=== PATIENT | female | born 1990 | race Caucasian/White ===

== ENCOUNTER 2017-06-17 08:56 | Inpatient (IN) | payer BC, OTHER ==
[~2017-06-17] VITALS: Ht 160 cm; Wt 90.7 kg
[2017-06-17 12:00] VITALS: BP 128/94
--- NOTE | 2017-06-17 12:00 | NUR ---
INTAKE ASSESSMENT Received patient in intake. She is AOX4, stable, and ambulatory. Vital signs WNL. Patient reports NKA. Patient has seizure hx last seizure was 3 weeks ago. Patient brought home medications with her. Explained unit protocols and patient verbalized understanding. Will admit patient upon admission to third floor.
--- NOTE | 2017-06-17 12:17 | NUR ---
ADMISSION NOTE Allergy- NKA/NKFA Status-Full code Height 5'3 Weight-200 lb PCP- Dr. Mgcinnis said Vital Signs- B/P-128/94,HR-83, R-17, TEMP-98.1, SPO2-97%, Pain 4/10 SMOKE-1 Pack per day CIWA-10, COWS-13 Patient is a 27 year old female admitted to [facility] to detox center for BENZO/Opioid dependence under the care of Dr. Erwin. Urine provided by patient for urine screen and thorough body and belonging check done by CLIENT SUPPORT ANALYST. Patient appears anxious and flushed. Patient is cooperative during nursing assessment. Upon admission Patient is noted to be flat, intoxicated,but cooperative with admission. Patient reported Anxiety, Agitation,and presents with tremors. Patient denies chest pain or SOB. Lung sounds clear with no cough noted. Bowel sounds present in all 4 quadrants. BUE and BLE noted WNL with no edema present. Skin check done with no significant findings. Pt reported PMH of pre diabetic pt stated she was diagnosed 6 months ago, pt also stated she is not compliant with checking her blood sugar and taking oral Metformin. She states history as Anxiety, Depression, insomnia, history of seizure 3 weeks ago per pt "my doctor told me its from taking too much medication,back injury from lifting heavy ." Pt refused PNA vaccine. Patient brought in home medications. Patient denies SI/HI ideations. Pt AOx4. Patient reported first time in treatment. Patient reports of 9 months of sobriety from October 2014 to May 2015. Pt reported s/s of withdrawal as N/V/D, Chills, body aches, anxiety, agitation, Shakes, hot and cold flashes. Pt reported Substance abuse history as: OXYCONTIN-Pt reported taking OxyContin daily for past 6 years start taking 5 mg as her tolerance increased, she started taking 150 mg to 200mg Po and last used was 06/15/17, 130mg Po. OXYCODONE-Pt reported taking Oxycodone daily for past 6 years start taking 10 mg as her tolerance increased,She started taking 150 mg to 200mg Po and last used was 06/15/17, 100mg Po. HYDROCODONE-Pt reported taking Hydrocodone daily for past 6 years start taking 10 mg as her tolerance increased,She started taking 100 mg to 200mg Po and last used was 06/15/17, 50mg Po. XANAX-Pt reported taking Xanax daily for past 3 years start taking 1 mg as her tolerance increased,She started taking 10 mg Po and last used was 06/16/17, 1mg Po. Educated patient regarding unit policies and protocols, patient verbalized understanding. Patient oriented to unit by CLIENT SUPPORT ANALYST. Fall and seizure precautions in place. Safety measures in place, Call light within reach. Will cont to monitor.
[2017-06-17 12:24] LABS: BASOPHILS % (AUTO) 0.3 % (0.0-2.0); EOSINOPHILS % (AUTO) 0.1 % (0.0-7.0); HEMATOCRIT 46.1 % (37-47); HEMOGLOBIN 15.4 G/DL (12.0-16.0); LYMPHOCYTES # (AUTO) 2.1 K/UL (0.8-4.8); LYMPHOCYTES % (AUTO) 21.6 % (20.5-51.5); MEAN CORPUSCULAR HEMOGLOBIN 29.3 UUG (27.0-31.0); MEAN CORPUSCULAR HGB CONC 33 g/dL (32.0-37.0); MEAN CORPUSCULAR VOLUME 87.6 FL (81.0-99.0); MONOCYTES # (AUTO) 0.3 K/UL (0.1-1.30); MONOCYTES % (AUTO) 3.1 % (0.0-11.0); NEUTROPHILS # (AUTO) 7.1 K/UL (1.8-8.9); NEUTROPHILS % (AUTO) 74.9 % (38.5-71.5); PLATELET COUNT (AUTO) 384 K/UL (150-450); RED BLOOD CELL COUNT(AUTO) 5.26 MIL/UL (4.2-5.4); WHITE BLOOD COUNT (AUTO) 9.5 K/UL (4.0-11.2)
[2017-06-17 12:39] LABS: *URINE HCG, QUAL NEGATIVE (NEGATIVE)
[2017-06-17 12:42] LABS: *AMPHETAMINE, URINE NEGATIVE (NEGATIVE); *BARBITURATE, URINE NEGATIVE (NEGATIVE); *CANNABINOID, URINE NEGATIVE (NEGATIVE); *COCCAINE, URINE NEGATIVE (NEGATIVE); *OPIATE, URINE POSITIVE (NEGATIVE); *PHENCYCLIDINE SCREEN,URINE NEGATIVE (NEGATIVE)
[2017-06-17] MEDS ORDERED: BUPR100T13 PO (12:45)
[2017-06-17] MEDS ORDERED: OMEP20CA10 PO (12:45)
[2017-06-17] MEDS ORDERED: ALPR1TAB7 PO (12:45)
[2017-06-17] MEDS ORDERED: SODI650T PO (12:45)
[2017-06-17] MEDS ORDERED: OXYC30TA86 PO (12:45)
[2017-06-17] MEDS ORDERED: OXYC30TA2 PO (12:45)
[2017-06-17 12:46] LABS: ALANINE AMINOTRANSFERASE 35 U/L (14-59); ALKALINE PHOSPHATASE 125 U/L (50-136); ASPARTATE AMINOTRANSFERASE 23 U/L (15-37); BILIRUBIN,TOTAL 0.4 mg/dL (0.2-1.0); CARBON DIOXIDE 28 mmol/L (21-32); CHLORIDE 100 mmol/L (98-107); CREATININE 0.8 mg/dL (0.6-1.3); GLUCOSE 124 mg/dL (74-106); POTASSIUM 4.1 mmol/L (3.5-5.1); TOTAL PROTEIN, SERUM 8.2 g/dL (6.4-8.2); UREA NITROGEN, BLOOD 10 mg/dL (7-18)
[2017-06-17 12:51] LABS: ETHANOL < 3 MG/DL (0-0)
[2017-06-17 16:00] VITALS: BP 133/77
--- NOTE | 2017-06-17 19:03 | NUR ---
END OF SHIFT NOTE Pt admitted this afternoon for opioid/Benzo dependence. Pt started on Subutex/Valium taper tolerating well. COWS-13/CIWA-10 upon admission. Vital signs WNL. Skin intact warm and dry to touch. Last COWS-6, CIWA-7. Encourage Po fluids as tolerated. All safety measures in place, call light within reach. Pt endorsed to night nurse in stable condition.
--- NOTE | 2017-06-17 19:30 | NUR ---
START OF SHIFT NOTE Report received from AM nurse. Patient is a 27 year old female admitted to [facility] 06-17-17 for Opiate and Benzo detox. She is a full code, on a controlled carbohydrate diet, and on fall and seizure precautions. Patient with medical history of pre diabetes, anxiety, depression, insomnia and history seizure. Patient denies Si or Hi Mood apathetic and dysthymic at change of shift. Tearful when talking about missing daughter. Thoughts are linear, and patient is lucid. Vital signs stable. Last COWS 6 CIWA 7 at 1600. Pt started on Subutex/Valium taper tolerating well. Skin intact warm and dry to touch.tolerated. All safety measures in place, call light within reach.
[2017-06-17 20:00] VITALS: BP 145/82
--- NOTE | 2017-06-17 20:43 | NUR ---
PRN Medication Benadryl 50 mg Po given at 2042 for c/o insomnia effect pending Motrin 600mg Po given for bodyaches 7 out of 10 with effect pending.
--- NOTE | 2017-06-17 21:43 | NUR ---
Reassessment of patient Patient reassessed one hour after PRN Benadryl administered for insomnia. Patient awake, but states she is feeling tired, and is resting comfortably in bed. Patient reassessed one hour after PRN motrin 600 mg given for bodyaches of a 7 out of 10 PAtient states she has no current pain one hour later.
[2017-06-18] VITALS: BP 112/68
[2017-06-18 04:00] VITALS: BP 119/69
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
--- NOTE | 2017-06-18 06:57 | NUR ---
PRN Medication Zofran 4mg SL given at 0657 for nausea. Effect pending.
--- NOTE | 2017-06-18 07:17 | NUR ---
START OF SHIFT NOTE Received report from night nurse, 27 year old female admitted for Opioid and Benzo dependence. NKA, Full code. Pt cont with Subutex/Valium taper. Per endorsement pt received PRN Motrin, Benadryl, Zofran. Pt's last CIWA-3, COWS-3, Pt slept for 7 hours. Upon assessment pt reported Zofran was effective nausea decreased. No s/s of distress noted. Skin intact warm and dry to touch. Educate the pt with current plan of the day and medication regimen with good verbal understanding. All safety measurers in place, Call light within reach. Will cont to monitor.
[2017-06-18 08:00] VITALS: BP 143/95
[2017-06-18 11:10] LABS: HEPATITIS B SURFACE AG Negative (Negative)
[2017-06-18 12:00] VITALS: BP 140/93
--- NOTE | 2017-06-18 13:16 | NUR ---
PRN MOTRIN Pt complaining of headache 01/14. Administered PRN Motrin 600mg Po as ordered. Will monitor for effectiveness.
--- NOTE | 2017-06-18 14:16 | NUR ---
MOTRIN REASSESSMENT Per pt Motrin is effective headache reduce to 1/10.
[2017-06-18 16:00] VITALS: BP 144/75
--- NOTE | 2017-06-18 16:25 | NUR ---
PRN TYLENOL Pt complaining of general body aches 01/14. Administered PRN Tylenol 650mg Po as ordered. Will monitor for effectiveness.
--- NOTE | 2017-06-18 17:45 | NUR ---
COMMUNICATION Received call from Dr. Youngblood to add new order of Wellbutrin XL 300mg Po QAM. Order noted and carried out. Pt aware.
--- NOTE | 2017-06-18 17:47 | NUR ---
TYLENOL REASSESSMENT Per pt Tylenol was effective body aches subside to 0/10. Addendum: 06/18/17 at 1749 by ALICJA LEE LVN correct time for reassessment was [id number]
--- NOTE | 2017-06-18 18:55 | NUR ---
END OF SHIFT NOTE Pt presented with general body aches and headache. Pt was given PRN Tylenol/Motrin effective. Pt remained compliant with treatment. Pt attended some groups and activities. Vital signs WNL. Most recent CIWA-5, COWS-6. Safety measures in place. Pt endorsed to night nurse in stable condition.
--- NOTE | 2017-06-18 19:15 | NUR ---
START OF SHIFT Received 27 year old male patient admitted on for Opiate and Benzo dependency. Pt is full code with NKA, and on CCHO diet. Pt reports a PMHx of pre-diabetes, anxiety, depression, insomnia, and seizure 3 weeks ago. She reports using Oxycontin 150-200mg daily for 6 years. Last dose was 130 mg on 06/15/17. Oxycodone 150-200 mg daily for 6 years. Last dose was 100 mg on 06/15/17. Hydrocodone 150-200 mg daily for 6 years. Last dose 50 mg on 06/15/17. Xanax 1-10 mg daily for 3 years. Last dose was 1 mg on 06/17/17. Pt placed on 5 day Valium and 5 day Subutex taper and tolerating well. Per endorsement, pt received PRN Motrin and Tylenol. Pt is alert and oriented x4, breathing is even and unlabored. Safety measures in place. Will monitor.
--- NOTE | 2017-06-18 19:41 | NUR ---
PRN MOTRIN Pt complains of headache 06/16. PRN Motrin administered as ordered. Will monitor effectiveness.
[2017-06-18 20:00] VITALS: BP 129/90
--- NOTE | 2017-06-18 20:41 | NUR ---
PRN MOTRIN REASSESSMENT PRN medication effective. Pt reports decrease in headache /10.
--- NOTE | 2017-06-18 20:57 | NUR ---
PRN BENADRYL Pt complains of inability to sleep. PRN Benadryl administered as ordered. Safety measures in place. Will monitor effectiveness.
--- NOTE | 2017-06-18 21:57 | NUR ---
PRN BENADRYL REASSESSMENT PRN Benadryl effective. Pt lying in bed with eyes closed noted to be asleep. Respirations 16, breathing even and unlabored. Safety measures in place. Will monitor.
--- NOTE | 2017-06-19 | NUR ---
VITALS REFUSED, COWS and CIWA DEFERRED 0000 vitals were refused by pt at beginning of shift. Risks/benefits explained x3, pt still refused. COWS and CIWA deferred d/t pt lying in bed with eyes closed noted to be asleep. Respirations 16, breathing even and unlabored. Safety measures in place. Will monitor.
--- NOTE | 2017-06-19 04:00 | NUR ---
VITALS REFUSED, COWS and CIWA DEFERRED 0400 vitals were refused by pt at beginning of shift. Risks/benefits explained x3, pt still refused. COWS and CIWA deferred d/t pt lying in bed with eyes closed noted to be asleep. Respirations 16, breathing even and unlabored. Safety measures in place. Will continue to monitor.
--- NOTE | 2017-06-19 07:02 | NUR ---
END OF SHIFT Pt is a 27 year old male patient admitted on for Opiate and Benzo dependency. Pt is full code with NKA, and on CCHO diet. Pt reports a PMHx of pre-diabetes, anxiety, depression, insomnia, and seizure 3 weeks ago. Pt continues on 5 day Valium and 5 day Subutex taper. She is currently on day 2/5 and tolerating well. At 1940 she received PRN Motrin, and at 2056 she received PRN Benadryl. She reports medications are effective in decreasing her withdrawal symptoms as evidenced by decrease of COWS and CIWA. She slept a total of 10 hrs, Intake: 500mL, Void: x1, BM:0, COWS:7, CIWA:6. Pt remains alert and oriented x4, breathing is even and unlabored. Safety measures in place. Endorsed to oncoming shift.
--- NOTE | 2017-06-19 07:55 | NUR ---
START OF SHIFT NOTE Received report from night nurse, 27 year old female admitted for Opioid and Benzo dependence. NKA, Full code. Pt cont with Subutex/Valium taper. Per endorsement pt received PRN Motrin, Benadryl effective per night nurse. Pt's last CIWA-6 COWS-7, Pt slept for 10 hours. Pt received awake, alert and oriented x4, educated regarding plan of care for the day and medication regimen. Safety measures in place. call light kept with in reach. fall and seizure precautions observed and in place, will continue to monitor.
[2017-06-19 08:00] VITALS: BP 112/67
[2017-06-19 12:00] VITALS: BP 126/81
--- NOTE | 2017-06-19 14:31 | NUR ---
PRN TORADOL Pt was complaining of lower back pain 04/15. PRN Toradol 30ml IM administered as ordered. Will monitor for effectiveness.
--- NOTE | 2017-06-19 15:00 | NUR ---
TORADOL REASSESSMENT Per pt Toradol was effective in controlling pain, pain level decreased to 2/10.
[2017-06-19 16:00] VITALS: BP 125/76
--- NOTE | 2017-06-19 18:53 | NUR ---
END OF SHIFT NOTE Pt presented with general body aches. Pt was given PRN Toradol IM effective. Pt cont with Valium/Subutex taper tolerating well. Pt remained compliant with treatment. Pt attended some groups and activities. Vital signs WNL. Encouraged Po fluids as tolerated. Most recent CIWA-5, COWS-6. Safety measures in place. Pt endorsed to night nurse in stable condition.
--- NOTE | 2017-06-19 19:15 | NUR ---
START OF SHIFT Received 27 year old female admitted on 06/17/17 for Opiate and Benzodiazepine dependency. Pt is full code with NKA. She reports a PMHx of pre-diabetes, anxiety, depression, insomnia, and seizure. She reports using Oxycontin 150mg-200 mg daily for 6 years. Last dose was 130 mg on 06/15/17. Oxycodone 150-200mg daily for 6 years. Last dose was 100 mg on 06/15/17. Hydrocodone 150-200 mg daily for 6 years. Last dose was 50 mg on 06/15/17. And Xanax 1mg-10 mg daily for 3 years. Last dose was 1 mg on 06/17/17. Pt placed on 5 Subutex and 5 day Valium taper and tolerating well. Per endorsement, pt received PRN Toradol. Pt is alert and oriented x4, breathing even and unlabored. Safety measures in place. Will monitor.
[2017-06-19 20:00] VITALS: BP 140/95
--- NOTE | 2017-06-19 20:42 | NUR ---
PRN BENADRYL Pt complains of inability to sleep. PRN Benadryl administered as ordered. Safety measures in place. Will monitor effectiveness.
--- NOTE | 2017-06-19 21:42 | NUR ---
PRN BENADRYL REASSESSMENT PRN medication ineffective. Pt reports feeling drowsy and states she is ready to sleep. Safety measures in place. Will monitor.
--- NOTE | 2017-06-20 | NUR ---
VITALS REFUSED, COWS and CIWA DEFERRED 0000 vitals were refused by pt. COWS and CIWA deferred d/t pt lying in bed with eyes closed noted to be asleep. Respirations 16, breathing even and unlabored. Safety measures in place. Will monitor.
--- NOTE | 2017-06-20 04:00 | NUR ---
VITALS REFUSED, COWS and CIWA DEFERRED 0400 vitals were refused by pt. COWS and CIWA deferred d/t pt lying in bed with eyes closed noted to be asleep. Respirations 16, breathing even and unlabored. Safety measures in place. Will continue to monitor.
--- NOTE | 2017-06-20 07:20 | NUR ---
END OF SHIFT Pt is a 27 year old female admitted on 06/17/17 for Opiate and Benzodiazepine dependency. Pt is full code with NKA. She reports a PMHx of pre-diabetes, anxiety, depression, insomnia, and seizure. Pt continues on 5 day Subutex and 5 day Valium taper and tolerating well. At 2041 pt received PRN Benadryl. She slept a total of 7 hrs, Intake: 1297mL Void: x2 BM: 0 COWS:5, CIWA:4 at 1999. Pt remains alert and oriented x4, breathing even and unlabored. Safety measures in place. Endorsed to oncoming shift.
--- NOTE | 2017-06-20 07:42 | NUR ---
BEGINNING OF SHIFT Patient endorsement report received from night club manager nurse, all pertinent information discussed. patient is a 27 year old male with admitting Dx: Opiate/BZO dependence, Patient admitted on 06/17/2017, patient with past medical history: Pre diabetes, anxiety, depression, insomnia, and seizure history. patient currently under close observation ongoing, 5 day Valium taper and 5 day Subutex taper as ordered. Scheduled to begin day: 3 of taper. Per night club manager patient received PRN: Benadryl, effective as per night club manager. patient slept for 7 hours, with last ciwa score of: 4 and last cow score of: 5. Patient received awake, alert and oriented x4, educated regarding plan of care for the day and medication regimen. Safety measures in place. call light kept with in reach. fall and seizure precautions observed and in place, will continue to monitor closely. safety measures in place.
[2017-06-20 08:31] VITALS: BP 123/74
--- NOTE | 2017-06-20 08:49 | NUR ---
PRN MOTRIN Patient c/o leg pain 04/15, provided with non pharmacological interventions with no relief, administered Motrin as ordered, will continue to monitor closely.
--- NOTE | 2017-06-20 09:49 | NUR ---
MOTRIN REASSESSMENT Patient reports medication with relief, current pain level 2/10, tolerable as per patient.
[2017-06-20 12:20] VITALS: BP 110/64
[2017-06-20 16:00] VITALS: BP 116/68
--- NOTE | 2017-06-20 18:53 | NUR ---
END OF SHIFT Patient alert and oriented x4, vital signs were stable during shift. Patient compliant with therapeutic plan of care. Patient with admitting Dx: opiate/bzo dependence. Patient continues on 5 day subtext taper and 5 day Valium taper as ordered, and is currently on day 3 of taper, well tolerated no ASE noted. Encouraged adequate PO fluid intake as tolerated. Patient was seen by Dr. Youngblood during shift, as per patient difficulty sleeping at night, psychiatrist aware with new orders. 0900 assessment patient presented with: c/o chills, mild bone and joint aches, tremors that can be felt but not seen, mild anxiety, barely sweating, mild agitation and yawning with cow score of: 5 and ciwa score of: 4; 1300 assessment patient presented with: mild bone and joint aches, tremors that can be felt but not seen, mild anxiety with cow score of: 3 and ciwa score of: 2; 1700 assessment patient presented with: mild bone and joint aches, tremors that can be felt but not seen, and mild anxiety with cow score of: 3 and ciwa score of:2. Patient denies any SI/HI. Encouraged to attend group therapies/sessions to learn new coping skills to prevent relapse. Received PRN: Motrin during shift, medication effective. Patients safety measures in place. Call light kept with in each. Will continue to monitor closely. Patient endorsed to supervisor tunnel heading nurse, all pertinent information discussed.
[2017-06-20 20:00] VITALS: BP 135/69
--- NOTE | 2017-06-20 20:26 | NUR ---
PRN SEROQUEL Pt complains of inability to sleep. PRN Seroquel administered as ordered. Safety measures in place. Will monitor effectiveness.
--- NOTE | 2017-06-20 21:26 | NUR ---
PRN SEROQUEL REASSESSMENT PRN medication effective. Pt is lying in bed with eyes closed and is asleep. Respirations 16, breathing even and unlabored. Safety measures in place. Will monitor.
--- NOTE | 2017-06-21 | NUR ---
VITALS REFUSED, COWS and CIWA DEFERRED 0000 vitals refused. COWS and CIWA deferred d/t pt lying in bed with eyes closed noted to be asleep. Breathing even and unlabored. Safety measures in place. Will monitor.
--- NOTE | 2017-06-21 04:00 | NUR ---
VITALS REFUSED, COWS and CIWA DEFERRED 0400 vitals refused. COWS and CIWA deferred d/t pt lying in bed with eyes closed noted to be asleep. Breathing even and unlabored. Safety measures in place. Will monitor.
--- NOTE | 2017-06-21 07:09 | NUR ---
END OF SHIFT Pt is a 27 year old female admitted on 06/17/17 for Opiate and Benzodiazepine dependency. Pt is full code with NKA. She reports a PMHx of pre-diabetes, anxiety, depression, insomnia, and seizure. Pt continues on 5 day Subutex and 5 day Valium taper and tolerating well. At 2025 she received PRN Seroquel. She slept a total of 8 hrs, Intake:500mL Void:x1 BM:0 COWS: 4, CIWA: 3. Pt remains alert and oriented x4, breathing even and unlabored. Safety measures in place. Endorsed to oncoming nurse.
--- NOTE | 2017-06-21 07:10 | NUR ---
Start of Shift Notes: Received patient in her room. Alert and oriented x 4. Verbally responsive. Appears anxious with mild sweats and noted with tremors. Respirations even and unlabored. No SOB noted. Skin warm and dry to touch. Abdomen soft and non-distended with (+) BS in all 4 quadrants. No complains of N/V/D or constipation noted. No complains of abdominal discomfort noted. Bladder non-distended. Voids independently. Ambulatory ad manuelito with steady gait. Patient is a 27 year old female admitted for opiate/BZO dependence who was placed on a 5-day Subutex and 5-day Valium taper as ordered. No adverse reactions noted. Has past medical hx of pre-DM, anxiety, depression, insomnia, and seizure. NKA. FULL CODE. Regular diet. On fall and seizure precautions. Educated patient on her current plan of care for the day and her medication regimen. Encouraged oral fluid intake and encouraged group participation to learn new skills to prevent relapse. Will continue to monitor closely.
[2017-06-21 08:00] VITALS: BP 117/73
--- NOTE | 2017-06-21 08:51 | NUR ---
PRN Motrin 600 mg PO given: Patient noted with complain of 5/10 back pain. Non-pharmacological interventions were provided but ineffective. Medicated patient with Motrin 600 mg PO as ordered. Will monitor for effectiveness.
--- NOTE | 2017-06-21 09:51 | NUR ---
Re-assessment: Motrin Per patient, PRN Motrin was effective in reducing back pain. Verbalizes pain level to be 2/10.
--- NOTE | 2017-06-21 11:00 | NUR ---
Rcvd endorsement from day shift nurse, client is in group therapy, will continue to monitor.
[2017-06-21 12:55] VITALS: BP 108/62
[2017-06-21 16:55] VITALS: BP 127/74
--- NOTE | 2017-06-21 17:33 | NUR ---
PRN MOTRIN 600mg Client reports low back pain 6/10, provided with non pharmacological interventions with no relief, administered Motrin as ordered, will continue to monitor closely.
--- NOTE | 2017-06-21 18:33 | NUR ---
END OF SHIFT and Reassessment PRN Motrin 600mg Endorsed to incoming nurse, client is a 27 y/o female admitted for withdrawal from benzodiazepine and opiates. She is on a 5-day Subutex and 5-day Valium taper tolerating well. PRN Motrin x 2 for pain, noted effective. She is a/o x 4. Adequate PO fluid intake 2100mL, void x 4. Client was compliant with group therapy. Call light within reach. Side rails x 2 up/padded. Will continue to monitor.
--- NOTE | 2017-06-21 19:05 | NUR ---
Start of Shift Patient is in activities room participating in group activities. Patient is a 27 year old female admitted on 06/17/17 for Opiates and Benzo Dependence. Patient is currently receiving a 5 day Subutex and 5 day Valium. Patient verbalizes no known allergies, wishes to be full code, following a CCHO diet, placed on fall and seizure precautions, with skin noted intact. Past medical history of Pre-diabetic, anxiety, depression, insomnia, and seizure. Per endorsement, patient was given PRN Motrin for pain with mediation noted to be effective. Last noted COWS 6 and CIWA 6. All needs attended to promptly. Will continue plan of care as ordered.
[2017-06-21 20:19] VITALS: BP 119/77
--- NOTE | 2017-06-21 20:25 | NUR ---
PRN Medication Administration Patient verbalizing increased body aches and inability of falling asleep. PRN Robaxin and Seroquel administered as per order. Will continue to monitor.
--- NOTE | 2017-06-21 21:30 | NUR ---
PRN Medication Reassessment Patient is able to verbalize medication was effective in minimizing body aches. Patient verbalized "Im making my way to bed now." PRN Seroquel and Robaxin noted to be effective. Will continue to monitor.
[2017-06-22 00:20] VITALS: BP 98/56
[2017-06-22 04:00] VITALS: BP 102/63
--- NOTE | 2017-06-22 07:05 | NUR ---
End of Shift Patient is in bed sleeping but easily aroused to verbal stimuli. Breathing even and non labored. No facial grimacing noted. Patient is a 27 year old female admitted on 06/17/17 for Opiates and Benzo Dependence. Patient is currently receiving a 5 day Subutex and 5 day Valium. No known allergies, full code, following a [facility] diet, placed on fall and seizure precautions, with skin noted intact. Past medical history of Pre-diabetic, anxiety, depression, insomnia, and seizure. Patient was given PRN Robaxin and Seroquel with medication noted to be effective. Last noted COWS 6 and CIWA 6. All needs attended to promptly. Will endorse to continue plan of care as ordered.
--- NOTE | 2017-06-22 07:06 | NUR ---
Start of Shift Notes: Received patient in her room. Alert and oriented x 4. Verbally responsive. Appears anxious with mild sweats and noted with tremors. Respirations even and unlabored. No SOB noted. Skin warm and dry to touch. Abdomen soft and non-distended with (+) BS in all 4 quadrants. No complains of N/V/D or constipation noted. No complains of abdominal discomfort noted. Bladder non-distended. Voids independently. Ambulatory ad manuelito with steady gait. Patient is a 27 year old female admitted for opiate/BZO dependence who was placed on a 5-day Subutex and 5-day Valium taper as ordered. No adverse reactions noted. Prior to admission, patient was using 150 to 200 mg of Oxycontin, 150 to 200 mg of Oxycodone, 150 to 200 mg of hydrocodone and 1-10mg of Xanax daily x 6 years. Has past medical hx of pre-DM, anxiety, depression, insomnia, and seizure. NKA. FULL CODE. Regular diet. On fall and seizure precautions. Educated patient on her current plan of care for the day and her medication regimen. Encouraged oral fluid intake and encouraged group participation to learn new skills to prevent relapse. Will continue to monitor closely.
[2017-06-22 08:00] VITALS: BP 109/74
--- NOTE | 2017-06-22 08:52 | NUR ---
Toradol 30 mg IM given: Patient noted with complain of 9/10 generalized pain. Pt states "pain is all over my body." Non-pharmacological interventions were provided but ineffective. Medicated patient with Toradol 30 mg IM to right deltoid. Will monitor for effectiveness.
--- NOTE | 2017-06-22 09:22 | NUR ---
Re-assessment: Per patient, PRN Toradol was mildly effective in reducing pain. PL 4/10.
--- NOTE | 2017-06-22 10:00 | NUR ---
Psych MD Communication/New orders: Patient reports episodes of night terrors at night. Verbalizes that he has been going through something like this all his life and request to be evaluated by MD. Dr. Gaines made aware and started patient on Lexapro as ordered. Patient education provided. Addendum: 06/22/17 at 1640 by DARI BETANCOURT LVN Error in charting. Wrong patient.
[2017-06-22 12:00] VITALS: BP 124/76
[2017-06-22 16:00] VITALS: BP 123/76
--- NOTE | 2017-06-22 18:50 | NUR ---
End of Shift Notes: Patient continues to be on 5-day Valium and 5-day Subutex taper as ordered. No adverse reactions noted. Patient is tolerating her taper well. VS monitored closely. No significant abnornalities noted. Withdrawal symptoms were closely moniored. Initial COWS 7/CIWA 6, patient presented with myalgia, anxiety, agitation, pupil dilation and fatigue. PRN Tordaol 30 mg IM given at 0852 with help after 30 minutes. Last COWS 4/CIWA3. Per patient Subutex and Valium has been helping her reduce her withdrawal symptoms. Able to participate in group and activites despite her withdrawal symptoms. Socializes with staff and her peers. Compliant with care and treatment. Call light kept in reach. All needs met and attended. Will continue to monitor closely.
--- NOTE | 2017-06-22 19:15 | NUR ---
START OF SHIFT NOTE : Patient is a 27 year old female admitted for opiate/BZO dependence who was placed on a 5-day Subutex and 5-day Valium taper as ordered. No adverse reactions noted. Prior to admission, patient was using 150 to 200 mg of Oxycontin, 150 to 200 mg of Oxycodone, 150 to 200 mg of hydrocodone and 1-10mg of Xanax daily x 6 years. Has past medical hx of pre-DM, anxiety, depression, insomnia, and seizure. NKA. FULL CODE. Regular diet. On fall and seizure precautions. Alert and oriented x 4. Verbally responsive. Appears anxious with mild sweats and noted with tremors. Respirations even and unlabored. No SOB noted. Skin warm and dry to touch. Abdomen soft and non-distended with (+) BS in all 4 quadrants. No complains of N/V/D or constipation noted. No complains of abdominal discomfort noted. Bladder non-distended. Voids independently. Ambulatory ad manuelito with steady gait. Educated patient on her current plan of care for the day and her medication regimen. Encouraged oral fluid intake and encouraged group participation to learn new skills to prevent relapse. Safety measures in place : bed on lowest position with side rails x2 up for safety, call light within reach. Will continue to monitor closely and offer help.
[2017-06-22 20:00] VITALS: BP 133/75
--- NOTE | 2017-06-22 21:00 | NUR ---
PRN Benadryl, Robaxin Pt c/o inability to sleep and mild muscle spasm . PRN Benadryl , Robaxin administered as ordered. Safety measures in place : bed on lowest position with side rails x2 up for safety, call light within reach. Will continue to monitor closely and offer help.
--- NOTE | 2017-06-22 22:00 | NUR ---
RE-ASSESSMENT Eliceo Fonatna Pt. is sleeping, RR=16, unlabored and even. Safety measures in place : bed on lowest position with side rails x2 up for safety, call light within reach. Will continue to monitor closely and offer help.
--- NOTE | 2017-06-23 06:39 | NUR ---
END OF SHIFT NOTE : Patient is a 27 year old female admitted for opiate/BZO dependence who was placed on a 5-day Subutex and 5-day Valium taper as ordered. No adverse reactions noted. Prior to admission, patient was using 150 to 200 mg of Oxycontin, 150 to 200 mg of Oxycodone, 150 to 200 mg of hydrocodone and 1-10mg of Xanax daily x 6 years. Has past medical hx of pre-DM, anxiety, depression, insomnia, and seizure. NKA. FULL CODE. Regular diet. On fall and seizure precautions. Pt remains compliant with the treatment plan. PRN SEROQUEL, ROBAXIN given during my shift. V/S remain WNL. RR=16, even and unlabored, lungs clear upon auscultation, abdomen soft and non- distended. Pt denies nausea, vomiting and diarrhea. LAST CIWA=3 ,COWS=3 at 0400 , [id number] ml, voided x3 , slept 8 hours. Safety measures in place : bed on lowest position with side rails x2 up for safety, call light within reach. Will continue to monitor closely and offer help.
[2017-06-23 08:00] VITALS: BP 117/73
--- NOTE | 2017-06-23 09:09 | NUR ---
PRN Motrin 600 mg PO given: Patient noted with complain of 6/10 back pain. Non-pharmacological interventions were provided but ineffective. Medicated patient with Motrin 600 mg PO as ordered. Will monitor for effectiveness.
--- NOTE | 2017-06-23 10:09 | NUR ---
Re-assessment: Per patient, PRN Motrin was effective in reducing pain. PL 2.
[2017-06-23 12:00] VITALS: BP 114/75
[2017-06-23] MEDS ORDERED: DICY20TA28 PO (15:31)
[2017-06-23] MEDS ORDERED: BACL20TA PO (15:31)
[2017-06-23] MEDS ORDERED: QUET100T PO (15:31)
[2017-06-23] MEDS ORDERED: GABA-534 PO ×2 (15:31)
[2017-06-23] MEDS ORDERED: FAMO20TA8 PO (15:31)
[2017-06-23] MEDS ORDERED: CLON0.2T12 PO (15:31)
[2017-06-23] MEDS ORDERED: BUPR-96 PO (15:31)
[2017-06-23] MEDS ORDERED: CLON0.1T14 PO (15:31)
[2017-06-23] MEDS ORDERED: LIDO30AD10 TD (15:31)
[2017-06-23] MEDS ORDERED: IBUP-1957 PO (15:31)
[2017-06-23 16:00] VITALS: BP 124/70
--- NOTE | 2017-06-23 18:47 | NUR ---
Mylanta 30cc PO given: Patient complains of heartburn and indigestion. Medicated patient with Mylanta 30 cc PO as ordered. Will monitor for effectiveness.
--- NOTE | 2017-06-23 18:59 | NUR ---
End of Shift Notes: Patient completed her 5-day Valium and 5-day Subutex taper as ordered. No adverse reactions noted. Patient is tolerating her taper well. VS monitored closely. No significant abnornalities noted. Withdrawal symptoms were closely moniored. Initial COWS 4/CIWA 3, patient presented with myalgia, anxiety, and fatigue. PRN Motrin 600 mg PO given for body aches with help after 1 hour. PRN Mylanta 30 cc PO given at 1847. Results pending. Last COWS 2/CIWA 1. Per patient Subutex and Valium has been helping her reduce her withdrawal symptoms. Able to participate in group and activites despite her withdrawal symptoms. Socializes with staff and her peers. Compliant with care and treatment. Patient will be discharging tomorrow. Call light kept in reach. All needs met and attended. Will continue to monitor closely.
--- NOTE | 2017-06-23 19:15 | NUR ---
START OF SHIFT NOTE : Patient is a 27 year old female admitted for opiate/BZO dependence who was placed on a 5-day Subutex and 5-day Valium taper as ordered. No adverse reactions noted. Prior to admission, patient was using 150 to 200 mg of Oxycontin, 150 to 200 mg of Oxycodone, 150 to 200 mg of hydrocodone and 1-10mg of Xanax daily x 6 years. Has past medical hx of pre-DM, anxiety, depression, insomnia, and seizure. NKA. FULL CODE. Regular diet. On fall and seizure precautions. Alert and oriented x 4. Verbally responsive. Appears anxious with mild sweats and noted with tremors. Respirations even and unlabored. No SOB noted. Skin warm and dry to touch. Abdomen soft and non-distended with (+) BS in all 4 quadrants. No complains of N/V/D or constipation noted. No complains of abdominal discomfort noted. Bladder non-distended. Voids independently. Ambulatory ad manuelito with steady gait. Educated patient on her current plan of care for the day and her medication regimen. Encouraged oral fluid intake and encouraged group participation to learn new skills to prevent relapse. Pt. will be D/C tomorrow.Safety measures in place : bed on lowest position with side rails x2 up for safety, call light within reach. Will continue to monitor closely and offer help.
[2017-06-23 20:00] VITALS: BP 121/75
--- NOTE | 2017-06-24 06:55 | NUR ---
END OF SHIFT NOTE : Patient is a 27 year old female admitted for opiate/BZO dependence who was placed on a 5-day Subutex and 5-day Valium taper as ordered. No adverse reactions noted. Has past medical hx of pre-DM, anxiety, depression, insomnia, and seizure. NKA. FULL CODE. Regular diet. On fall and seizure precautions. Alert and oriented x 4. Verbally responsive. Appears anxious. Pt remains compliant with the treatment plan. No PRNs were given during my shift. V/S remain WNL. RR=16, even and unlabored, lungs clear upon auscultation, abdomen soft and non- distended. Pt denies nausea, vomiting and diarrhea. LAST CIWA=1 ,COWS=1 at 0400 , [id number] ml, voided x3 , slept7 hours. Pt. will be D/C today. Safety measures in place : bed on lowest position with side rails x2 up for safety, call light within reach. Will continue to monitor closely and offer help.
--- NOTE | 2017-06-24 07:51 | NUR ---
START OF SHIFT NOTE Received report from night nurse, 27 year old female admitted for Opioid and Benzo dependence. NKA, Full code. Pt completed Subutex/Valium taper. Per endorsement pt did not receive any PRN. Pt's last CIWA-1 COWS-1, Pt slept for 7 hours. Pt scheduled for discharge today. Pt received awake, alert and oriented x4, educated regarding plan of care for the day and medication regimen. Safety measures in place. call light kept with in reach. fall and seizure precautions observed and in place, will continue to monitor.
[2017-06-24 08:00] VITALS: BP 112/81
[2017-06-24 08:08] VITALS: BP 112/81
--- NOTE | 2017-06-24 09:36 | NUR ---
DISCHARGE NOTE Pt is in stable condition. Vital signs WNL. Pt is alert oriented x4, Skin intact, Pt denies any SI/HI ideations. All discharge paper work completed dated and signed. Pt educated about discharge instructions,Pt verbalized understanding. Pt's last CIWA_2, COWS-2. Pt discharged from [facility] on 06/24/17 at 0936. Pt left the building with all of her belongings and prescriptions, and her own medications she brought from home upon admission. has been contacted and notified of pt's discharge.
== END 2017-06-24 09:36 | disposition other institution (70) | DRG 895 ==
LOC: SRC 10:55
PROVIDERS: ADMIT Internal Medicine; ATTEND Internal Medicine
PROC: HZ2ZZZZ Detoxification Services for Substance Abuse Treatment (ICD-10-PCS; principal; 2017-06-17)
PROC: HZ41ZZZ Group Counseling for Substance Abuse Treatment, Behavioral (ICD-10-PCS; 2017-06-18)
DX: F11.23 Opioid dependence with withdrawal (principal); F33.2 Major depressive disorder, recurrent severe without psychotic features; I15.9 Secondary hypertension, unspecified; F17.210 Nicotine dependence, cigarettes, uncomplicated; F13.230 Sedative, hypnotic or anxiolytic dependence with withdrawal, uncomplicated; F41.9 Anxiety disorder, unspecified; Z91.14 Patient's other noncompliance with medication regimen; E11.9 Type 2 diabetes mellitus without complications; Z83.3 Family history of diabetes mellitus; Z82.49 Family history of ischemic heart disease and other diseases of the circulatory system; Z81.1 Family history of alcohol abuse and dependence; Z81.3 Family history of other psychoactive substance abuse and dependence; Z91.89 Other specified personal risk factors, not elsewhere classified; G47.00 Insomnia, unspecified
CPT/HCPCS: 36415; 70030-TC; 80307; 80346; 80361; 83735; 84703; 85025; 86580; 86592; 86705; 86803; 87340; 87806; A4663; G0480; J1885; Q0162; Q0163